=== PATIENT | female | born 1965 | race Caucasian/White ===

== ENCOUNTER → 2016-12-09 | Outpatient (CLI) | payer BC ==
[~2016-12-09] MED LIST: DEPO METHYLPREDNISOLONE 40 MG/ML SDV ONE; DEPO METHYLPREDNISOLONE 80 MG/ML SDV ONE; IOPAMIDOL (ISOVUE-300) 50 ML VIAL IV ONE; LIDOCAINE 1% 30 ML SDV ONE; NA BICARBONATE 50 MEQ/50 ML VIAL ONE; ROPIVACAINE HCL 150 MG/30 ML INJ ONE
--- NOTE | 2016-12-09 13:27 | DX ---
Right Hip Fluoroscopic-Guided Therapeutic Injection, including intraarticular viscosupplementation. History: Hip pain. Crosscutting Measure #226: Current tobacco user: no. Consent:Informed written and oral consent was obtained. Fluoroscopy Time: 0.1 minute. Cumulative dose 0.5 mGy. Procedure: Utilizing fluoroscopic guidance and sterile technique, the hip was prepped in usual steri le fashion. Lidocaine with bicarbonate was used as local anesthesia. Then, a 22-gauge spinal needle w as advanced into the lateral femoral neck aspect of the hip joint. 1 cc nonionic contrast injected in to the joint to document positioning. Then, 4 mL of Ropivacaine and 40 mg of Depo-medrol were injecte d into the hip joint. This was followed by placing one vial of Supartz placed intraarticular. Needle was removed. Manual hemostasis was achieved. Patient tolerated the procedure well without immediate c omplications. Discharge instructions were given. Impression: 1. Successful right hip 40 mg Depo-medrol and 4 mL Ropivacaine injection under fluoroscopic guidance for intraarticular placement of viscosupplementation, corticosteroid, and long-acting anesthetic. 2. No immediate complications.
== END ==
LOC: FIMAGING 10:54
PROVIDERS: ATTEND Orthopaedic Surgery
PROC: 3E0U3GC Introduction of Other Therapeutic Substance into Joints, Percutaneous Approach (ICD-10-PCS; principal; 2016-12-09)
PROC: 3E0U3BZ Introduction of Anesthetic Agent into Joints, Percutaneous Approach (ICD-10-PCS; principal; 2016-12-09)
PROC: 3E0U33Z Introduction of Anti-inflammatory into Joints, Percutaneous Approach (ICD-10-PCS; principal; 2016-12-09)
DX: M16.12 Unilateral primary osteoarthritis, left hip (principal)
CPT/HCPCS: J1020; J2795; Q9967

== ENCOUNTER → 2017-03-31 | Outpatient (CLI) | payer BC | LOC: BMCIMAGING 10:40 | PROVIDERS: ATTEND Internal Medicine | DX: N64.4 Mastodynia (principal) | CPT/HCPCS: G0204 ==

== ENCOUNTER → 2017-10-05 | Outpatient (CLI) | payer BC ==
[~2017-10-05] MED LIST changes: -DEPO METHYLPREDNISOLONE 80 MG/ML SDV ONE; +IOPAMIDOL (ISOVUE 370) 100 ML BTL IV ONE; -IOPAMIDOL (ISOVUE-300) 50 ML VIAL IV ONE; -LIDOCAINE 1% 30 ML SDV ONE; +LIDOCAINE 1% 300 MG/30 ML SDV ONE; -NA BICARBONATE 50 MEQ/50 ML VIAL ONE
== END ==
LOC: FIMAGING 10:09
PROVIDERS: ATTEND Orthopaedic Surgery
PROC: 3E0U329 Introduction of Other Anti-infective into Joints, Percutaneous Approach (ICD-10-PCS; principal; 2017-10-05)
PROC: 3E0U3BZ Introduction of Anesthetic Agent into Joints, Percutaneous Approach (ICD-10-PCS; principal; 2017-10-05)
DX: M16.12 Unilateral primary osteoarthritis, left hip (principal)
CPT/HCPCS: J1030; J2795; Q9967

== ENCOUNTER → 2018-07-13 | Outpatient (CLI) | payer BC | LOC: BMCIMAGING 09:11 | PROVIDERS: ATTEND Internal Medicine | DX: Z12.31 Encounter for screening mammogram for malignant neoplasm of breast (principal) ==

== ENCOUNTER → 2018-07-14 | Outpatient (CLI) | payer BC | LOC: BMCIMAGING 09:46 | PROVIDERS: ATTEND Internal Medicine | DX: Z13.820 Encounter for screening for osteoporosis (principal); M85.89 Other specified disorders of bone density and structure, multiple sites; Z78.0 Asymptomatic menopausal state ==

== ENCOUNTER → 2018-08-09 | Outpatient (CLI) | payer BC | LOC: BMCIMAGING 10:52 | PROVIDERS: ATTEND Internal Medicine | DX: R92.8 Other abnormal and inconclusive findings on diagnostic imaging of breast (principal) ==